=== PATIENT | female | born 1955 | race Caucasian/White ===

== ENCOUNTER 2016-12-30 07:16 | Outpatient (CLI) | payer BC ==
[~2016-12-30] VITALS: Ht 167.6 cm; Wt 110.0 kg
[2016-12-30] VITALS (7 sets, daily range): BP systolic 108–122; BP diastolic 57–66; PULSE 68–82; TEMP 98.1
[~2016-12-30 07:16] MED LIST: ADVAIR 250/28 DISKUS IH; ALBUTEROL0.09 MG/A1 IH; ALLEGRA180 MG PO; ALLEGRA60 MG PO; AMOXICILLIN 8751 TAB PO; ASPIRIN 32325 MG/TAB PO; ASPIRIN E.C.325 MG PO; CARAFATE 1GM1 G PO; CHANTIX1 MG PO; CLOPIDOGREL; CLOPIDOGREL PO; COENZYME Q-1010 MG PO; COENZYME Q-1050 MG PO; COLACE 100100 MG/CAP PO; CRESTOR; CRESTOR10 MG PO; DEXILANT60 MG PO; FISH OIL1 IU PO; FLONASE NASAL S16 GM NS; FLUNISOLIDE NS; GLUCOPHAGE500 MG/TAB PO; IMDUR 30MG30 MG/TAB PO; IMDUR 60MG60 MG/TAB PO; ISOCHRON40 MG PO; ISOSORBIDE DINI40 M1 PO; KAPIDEX PO; KAPIDEX60 MG PO; LISINOPRIL; LISINOPRIL2.5 MG PO; LISINOPRIL5 MG PO; LOPRESSOR 225 MG/TAB PO; METOPROLOL; MUCUS RELIEF400 M1 PO; MUCUSRELF400T PO; MULTIPLE VITAMI1 TAB PO; MVI PO; MYCOSTATIN100000 U/G TP; NASONEX SPRAY NAS; NATURE'S BLEND1 SG3 PO; NIACIN; NIASPAN 500MG500 MG; NIASPAN 500MG500 MG PO; NITROQUICK0.4 MG SL; NITROSTAT0.4 MG SL; NITROSTAT0.4 MG/TAB SL; NORVASC 5MG5 MG/TAB PO; ONE DAILY1 TA2 PO; OS-CAL 500 + D1 TAB; OSCAL W/VIT D250 MG PO; PHENERGAN 25 TA25 MG PO; PLAVIX 75MG TAB75 MG PO; PRAVACHOL 40MG40 MG PO; PRAVASTATIN; PREVACID 15MG15 MG PO; PREVACID30 MG PO; PRIMROSE OIL1 SGL PO; PRINIVIL5 MG PO; RANEXA; RANEXA 500MG T500 MG PO; RANEXA PO; RANEXA500 MG PO; RT ADVAIR 228 DISKUS IH; SINGULAIR10 MG PO; TOPROL XL100 MG PO; TRILIPIX 135MG PO; VITAMIN B COMPL1 TA1 PO; VITAMIN C500 MG PO; ZETIA10 MG PO; ZETONNA NS
[2016-12-30 08:09] LABS: HEMOGLOBIN 12.4 g/dl (12.5-16.0); MEAN CELL VOLUME 89 fl (80.0-100.0); MEAN CORPUSCULAR HEMOGLOBIN 29 pg (27.0-31.0); MEAN CORPUSCULAR HGB CONC 33 g/dl (33.0-37.0); MEAN PLATELET VOLUME 10.5 fl (7.4-10.4); PLATELET COUNT 258 K/mm3 (130-400); RED BLOOD COUNT 4.29 M/mm3 (4.10-5.30); REDCELL DISTRIBUTION WIDTH-CV 13.5 % (11.5-14.5); WHITE BLOOD COUNT 9.3 K/mm3 (4.8-10.8)
[2016-12-30 08:16] LABS: INR 0.9 (0.8-3.0); PROTHROMBIN TIME 10.4 SECONDS (9.7-12.8)
[2016-12-30] MEDS ORDERED: IMDUR 60MG60 MG/TAB PO (08:16)
[2016-12-30] MEDS ORDERED: NORVASC 10MG10 MG PO (08:18)
[2016-12-30 08:20] LABS: CALCIUM 9.9 mg/dL (8.4-10.2); CREATININE, serum 0.77 mg/dL (0.52-1.25); POTASSIUM 4.1 mmol/L (3.4-5.0)
[2016-12-30] MEDS ORDERED: PROAIR HFA0.09 MG/AC IH (08:33)
[2016-12-30] MEDS ORDERED: NASONEX SPRAY17 GM NS (08:34)
[2016-12-30] MEDS ORDERED: VITAMINC1000TA PO (08:36)
[2016-12-30] MEDS ORDERED: VITAMIN D 1001000 IU PO (08:39)
[2016-12-30] MEDS ORDERED: VITAMIN B-1000 MCG/T PO (08:41)
== END 2016-12-30 12:10 | disposition home or self-care (01) ==
LOC: COL.RAD 07:16
PROVIDERS: Internal Medicine Interventional Cardiology
DX: Z45.2 Encounter for adjustment and management of vascular access device (principal); E78.5 Hyperlipidemia, unspecified; I25.10 Atherosclerotic heart disease of native coronary artery without angina pectoris; Z79.84 Long term (current) use of oral hypoglycemic drugs; Z79.82 Long term (current) use of aspirin; Z79.899 Other long term (current) drug therapy; Z79.02 Long term (current) use of antithrombotics/antiplatelets
CPT/HCPCS: J2250; J3010

== ENCOUNTER 2017-02-17 13:08 | Emergency (ER) | payer BC ==
[~2017-02-17] VITALS: Ht 167.6 cm; Wt 109.1 kg
[~2017-02-17 13:08] MED LIST changes: +NASONEX SPRAY17 GM NS; +NORVASC 10MG10 MG PO; +PROAIR HFA0.09 MG/AC IH; +VITAMIN B-1000 MCG/T PO; +VITAMIN D 1001000 IU PO; +VITAMINC1000TA PO
[2017-02-17 13:12] VITALS: TEMP 98.4
[2017-02-17 13:38] LABS: BASO # 0.1 (0.0-0.2); BASO % 0.5 % (0.0-2.0); EOS # 0.1 (0.0-0.7); EOS % 0.9 % (0-4.0); GRAN # 6.6 (1.4-6.5); GRAN % 62.9 % (42.2-75.2); HEMATOCRIT 38.4 % (37.0-47.0); HEMOGLOBIN 12.5 g/dl (12.5-16.0); LYMPH # 3.3 (1.2-3.4); LYMPH % 31.6 % (20.0-51.0); MEAN CELL VOLUME 88 fl (80.0-100.0); MEAN CORPUSCULAR HEMOGLOBIN 29 pg (27.0-31.0); MEAN CORPUSCULAR HGB CONC 33 g/dl (33.0-37.0); MEAN PLATELET VOLUME 10.1 fl (7.4-10.4); MONO # 0.4 (0.1-0.6); MONO % 3.6 % (1.7-9.3); PLATELET COUNT 273 K/mm3 (130-400); RED BLOOD COUNT 4.37 M/mm3 (4.10-5.30); REDCELL DISTRIBUTION WIDTH-CV 13.6 % (11.5-14.5); WHITE BLOOD COUNT 10.5 K/mm3 (4.8-10.8)
[2017-02-17 13:39] LABS: PROTHROMBIN TIME 11.4 SECONDS (9.7-12.8)
[2017-02-17 14:01] LABS: ADJUSTED CALCIUM 9.1 mg/dL (8.4-10.2); ALANINE AMINOTRANSFERASE 47 U/L (9-52); ALBUMIN 4.4 gm/dL (3.5-5.0); ALKALINE PHOSPHATASE 67 U/L (50-136); ANION GAP 12 mmol/L (7-16); BILIRUBIN,TOTAL 0.7 mg/dL (0.0-1.0); BLOOD UREA NITROGEN 14 mg/dL (7-17); CALCIUM 9.4 mg/dL (8.4-10.2); CARBON DIOXIDE 26 mmol/L (22-30); CHLORIDE 97 mmol/L (98-107); CREATINE KINASE 107 U/L (30-135); CREATININE, serum 0.69 mg/dL (0.52-1.25); GLUCOSE 136 mg/dL (74-106); SODIUM 135 mmol/L (137-145); TOTAL PROTEIN 7.6 gm/dL (6.4-8.2)
[2017-02-17 14:12] LABS: B-TYPE NATRIURETIC PEPTIDE 75 pg/mL (0-125)
[2017-02-17] MEDS ORDERED: IRON325 M2 PO (14:13)
[2017-02-17 14:21] LABS: TROPONIN-I < 0.012 ng/mL (0.000-0.034)
[2017-02-17 16:53] VITALS: BP 118/63; PULSE 96
== END 2017-02-17 17:02 | disposition home or self-care (01) ==
LOC: COL.ER 13:08
PROVIDERS: Emergency Medicine
DX: R07.9 Chest pain, unspecified (principal); I10 Essential (primary) hypertension; E11.9 Type 2 diabetes mellitus without complications; E78.5 Hyperlipidemia, unspecified; I25.2 Old myocardial infarction; J44.9 Chronic obstructive pulmonary disease, unspecified; Z95.5 Presence of coronary angioplasty implant and graft; Z87.891 Personal history of nicotine dependence

== ENCOUNTER → 2017-08-23 | Outpatient (CLI) | payer BC ==
[~2017-08-23] MED LIST changes: +IRON325 M2 PO
== END ==
LOC: MC.RAD 07:01
DX: Z12.31 Encounter for screening mammogram for malignant neoplasm of breast (principal)

== ENCOUNTER 2017-11-17 06:03 | Day surgery (SDC) | payer BC ==
[2017-11-17] VITALS (13 sets, daily range): BP systolic 101–123; BP diastolic 46–79; PULSE 60–75; TEMP 98.3
[~2017-11-17] VITALS: Ht 170.2 cm; Wt 103.3 kg
[2017-11-17 06:41] LABS: HEMATOCRIT 38.5 % (37.0-47.0); HEMOGLOBIN 12.7 g/dl (12.5-16.0); MEAN CELL VOLUME 88 fl (80.0-100.0); MEAN CORPUSCULAR HEMOGLOBIN 29 pg (27.0-31.0); MEAN CORPUSCULAR HGB CONC 33 g/dl (33.0-37.0); MEAN PLATELET VOLUME 9.8 fl (7.4-10.4); PLATELET COUNT 284 K/mm3 (130-400); RED BLOOD COUNT 4.37 M/mm3 (4.10-5.30); REDCELL DISTRIBUTION WIDTH-CV 13.1 % (11.5-14.5)
[2017-11-17 06:45] LABS: PROTHROMBIN TIME 11.5 SECONDS (9.7-12.8)
[2017-11-17 06:51] LABS: CALCIUM 9.8 mg/dL (8.4-10.2); CREATININE, serum 0.68 mg/dL (0.52-1.25); POTASSIUM 4.4 mmol/L (3.4-5.0)
[2017-11-17] MEDS ORDERED: PLAVIX 75MG TAB75 MG PO (07:47)
[2017-11-17] MEDS ORDERED: ASPIRIN 32325 MG/TAB PO (07:47)
[2017-11-17] MEDS ORDERED: NITROSTAT0.4 MG/TAB SL (07:47)
[2017-11-17] MEDS ORDERED: TOPROL XL100 MG PO (07:48)
[2017-11-17] MEDS ORDERED: RANEXA 500MG T500 MG PO (07:49)
[2017-11-17] MEDS ORDERED: IMDUR 60MG60 MG/TAB PO (07:49)
[2017-11-17] MEDS ORDERED: ZESTRIL 5MG5 MG PO (07:50)
[2017-11-17] MEDS ORDERED: ALLEGRA 180MG180 MG PO (07:51)
[2017-11-17] MEDS ORDERED: NORVASC 10MG10 MG PO (07:51)
[2017-11-17] MEDS ORDERED: ZETIA 10MG TAB10 MG PO (07:52)
[2017-11-17] MEDS ORDERED: SINGULAIR 110 MG/TAB PO (07:52)
[2017-11-17] MEDS ORDERED: PRAVACHOL80 MG PO (07:53)
[2017-11-17] MEDS ORDERED: DEXILANT60 MG PO (07:54)
[2017-11-17] MEDS ORDERED: GLUCOPHAGE1000 MG PO (07:55)
[2017-11-17] MEDS ORDERED: RT ADVAIR 228 DISKUS IH (07:56)
[2017-11-17] MEDS ORDERED: PROAIR HFA0.09 MG/AC IH (07:56)
[2017-11-17] MEDS ORDERED: TRILIPIX 135MG PO (07:56)
[2017-11-17] MEDS ORDERED: EPA FISH OIL1 SGL PO (07:57)
[2017-11-17] MEDS ORDERED: NASONEX SPRAY17 GM NS (07:57)
[2017-11-17] MEDS ORDERED: MULTI VITAMINS1 TAB PO (07:58)
[2017-11-17] MEDS ORDERED: VITAMINC1000TA PO (07:59)
[2017-11-17] MEDS ORDERED: OS-CAL 500 + D1 TAB PO (08:01)
[2017-11-17] MEDS ORDERED: THE MEDICINE S200 M2 PO (08:02)
[2017-11-17] MEDS ORDERED: VITAMIN D 1001000 IU PO (08:02)
[2017-11-17] MEDS ORDERED: COLACE 100100 MG/CAP PO (08:03)
[2017-11-17] MEDS ORDERED: NATURAL IRON65 MG PO (08:04)
[2017-11-17] MEDS ORDERED: EVENING PRIMRO500 MG PO (08:04)
[2017-11-17] MEDS ORDERED: B-121000 MCG PO (08:05)
== END 2017-11-17 12:14 | disposition home or self-care (01) ==
LOC: COL.CAR 06:03
PROVIDERS: Internal Medicine Interventional Cardiology
DX: I25.119 Atherosclerotic heart disease of native coronary artery with unspecified angina pectoris (principal); R07.89 Other chest pain; I10 Essential (primary) hypertension; Z95.5 Presence of coronary angioplasty implant and graft; E78.5 Hyperlipidemia, unspecified; Z79.01 Long term (current) use of anticoagulants; Z79.82 Long term (current) use of aspirin; Z68.37 Body mass index [BMI] 37.0-37.9, adult; J44.9 Chronic obstructive pulmonary disease, unspecified; E11.9 Type 2 diabetes mellitus without complications; Z79.84 Long term (current) use of oral hypoglycemic drugs
CPT/HCPCS: J2250; J3010; Q9967

== ENCOUNTER → 2018-10-08 | Outpatient (CLI) | payer BC ==
[~2018-10-08] MED LIST changes: +ALLEGRA 180MG180 MG PO; +B-121000 MCG PO; +EPA FISH OIL1 SGL PO; +EVENING PRIMRO500 MG PO; +GLUCOPHAGE1000 MG PO; +MULTI VITAMINS1 TAB PO; +NATURAL IRON65 MG PO; +OS-CAL 500 + D1 TAB PO; +PRAVACHOL80 MG PO; +SINGULAIR 110 MG/TAB PO; +THE MEDICINE S200 M2 PO; +ZESTRIL 5MG5 MG PO; +ZETIA 10MG TAB10 MG PO
== END ==
LOC: MC.RAD 10-01 08:00
DX: Z12.31 Encounter for screening mammogram for malignant neoplasm of breast (principal)

== ENCOUNTER → 2019-10-09 | Outpatient (CLI) | payer MEDICARE, BC | LOC: MC.RAD 13:45 | DX: Z12.31 Encounter for screening mammogram for malignant neoplasm of breast (principal) ==

== ENCOUNTER 2019-12-01 10:33 | Emergency (ER) | payer MEDICARE, BC ==
[~2019-12-01] VITALS: Ht 167.6 cm; Wt 107.3 kg
[2019-12-01 11:39] LABS: BASO % 0.5 % (0.0-2.0); EOS # 0.1 (0.0-0.7); EOS % 0.7 % (0-4.0); GRAN # 6.7 (1.4-6.5); GRAN % 77.5 % (42.2-75.2); HEMATOCRIT 37.6 % (37.0-47.0); HEMOGLOBIN 12.5 g/dl (12.5-16.0); LYMPH # 1.1 (1.2-3.4); LYMPH % 13.1 % (20.0-51.0); MEAN CELL VOLUME 88 fl (80.0-100.0); MEAN CORPUSCULAR HEMOGLOBIN 29 pg (27.0-31.0); MEAN CORPUSCULAR HGB CONC 33 g/dl (33.0-37.0); MONO # 0.7 (0.1-0.6); PLATELET COUNT 230 K/mm3 (130-400); RED BLOOD COUNT 4.26 M/mm3 (4.10-5.30); REDCELL DISTRIBUTION WIDTH-CV 13.6 % (11.5-14.5)
[2019-12-01 11:53] LABS: COLLECTION METHOD CLEAN CATCH
[2019-12-01 11:54] LABS: ALANINE AMINOTRANSFERASE 42 U/L (9-52); ALBUMIN 4.2 gm/dL (3.5-5.0); ALKALINE PHOSPHATASE 64 U/L (50-136); ANION GAP 10 mmol/L (7-16); AST,SGOT 51 U/L (15-37); BILIRUBIN,TOTAL 0.3 mg/dL (0.0-1.0); BLOOD UREA NITROGEN 18 mg/dL (7-17); CALCIUM 9.6 mg/dL (8.4-10.2); CARBON DIOXIDE 23 mmol/L (22-30); CHLORIDE 106 mmol/L (98-107); CREATININE, serum 0.54 (0.52-1.25); GLUCOSE 149 mg/dL (74-106); POTASSIUM 4.2 mmol/L (3.4-5.0); SODIUM 139 mmol/L (137-145); TOTAL PROTEIN 7.4 gm/dL (6.4-8.2)
[2019-12-01 12:08] LABS: TROPONIN-I < 0.012 ng/mL (0.000-0.035)
[2019-12-01 12:12] LABS: PH 8 (5-8); SQUAMOUS EPITHELIAL None Seen /hpf; URINE APPEARANCE Hazy; URINE BACTERIA None Seen /hpf; URINE BILIRUBIN Negative (NEGATIVE); URINE BLOOD Negative (NEGATIVE); URINE COLOR Yellow; URINE GLUCOSE Negative (NEGATIVE); URINE KETONE Negative (NEGATIVE); URINE LEUKOCYTE ESTERASE Negative (NEGATIVE); URINE NITRATE Negative (NEGATIVE); URINE PROTEIN(semi-quant) Negative (NEGATIVE); URINE RBC 0-2 /hpf; URINE UROBILINOGEN Negative (NEGATIVE)
[2019-12-01] MEDS ORDERED: TAMIFLU 75MG75 MG PO (13:22)
[2019-12-01] MEDS ORDERED: PREDNISONE20 MG PO (13:22)
[2019-12-01] MEDS ORDERED: DOXYCYCLINE 10100 MG PO (13:22)
[2019-12-01] MEDS ORDERED: TESSALON PERLE200 MG PO (13:22)
[2019-12-01 13:56] VITALS: BP 107/56; PULSE 85; TEMP 98.2
== END 2019-12-01 13:56 | disposition home or self-care (01) ==
LOC: COL.ER 10:33
PROVIDERS: Emergency Medicine; Nurse Practitioner
DX: J20.9 Acute bronchitis, unspecified (principal); J10.1 Influenza due to other identified influenza virus with other respiratory manifestations; E11.9 Type 2 diabetes mellitus without complications; J44.9 Chronic obstructive pulmonary disease, unspecified; I25.10 Atherosclerotic heart disease of native coronary artery without angina pectoris; E78.5 Hyperlipidemia, unspecified; Z95.9 Presence of cardiac and vascular implant and graft, unspecified; Z79.82 Long term (current) use of aspirin; Z79.02 Long term (current) use of antithrombotics/antiplatelets; Z79.51 Long term (current) use of inhaled steroids
CPT/HCPCS: J7512

== ENCOUNTER → 2020-10-12 | Outpatient (CLI) | payer MEDICARE, BC ==
[~2020-10-12] MED LIST changes: +DOXYCYCLINE 10100 MG PO; +PREDNISONE20 MG PO; +TAMIFLU 75MG75 MG PO; +TESSALON PERLE200 MG PO
== END ==
LOC: MC.RAD 08:45
DX: Z12.31 Encounter for screening mammogram for malignant neoplasm of breast (principal); Z78.0 Asymptomatic menopausal state

== ENCOUNTER → 2022-02-04 | Outpatient (CLI) | payer MEDICARE, BC | LOC: MC.RAD 09:27 | DX: Z12.31 Encounter for screening mammogram for malignant neoplasm of breast (principal) ==

== ENCOUNTER → 2022-05-19 | Outpatient (CLI) | payer MEDICARE, BC ==
[2022-05-19 14:23] LABS: HEMOGLOBIN 12.2 g/dl (12.5-16.0); MEAN CELL VOLUME 86 fl (80.0-100.0); MEAN CORPUSCULAR HEMOGLOBIN 29 pg (27-31); MEAN CORPUSCULAR HGB CONC 33 g/dl (33.0-37.0); MEAN PLATELET VOLUME 9.4 fl (7.4-10.4); PLATELET COUNT 325 K/mm3 (130-400); RED BLOOD COUNT 4.27 M/mm3 (4.10-5.30); REDCELL DISTRIBUTION WIDTH-CV 13.6 % (11.5-14.5)
[2022-05-19 14:25] LABS: HEMATOCRIT 36.8 % (37.0-47.0)
[2022-05-19 14:42] LABS: CALCIUM 9.7 mg/dL (8.4-10.2); CREATININE, serum 0.82 mg/dL (0.57-1.11); POTASSIUM 4.6 mmol/L (3.5-4.5)
== END ==
LOC: COL.LAB 14:02
PROVIDERS: Nurse Practitioner
DX: R07.89 Other chest pain (principal)

== ENCOUNTER → 2022-12-27 | Outpatient (CLI) | payer MEDICARE, BC ==
[2022-12-27 10:50] LABS: HEMATOCRIT 37.1 % (37.0-47.0); HEMOGLOBIN 12.5 g/dl (12.5-16.0); MEAN CELL VOLUME 89 fl (80.0-100.0); MEAN CORPUSCULAR HEMOGLOBIN 30 pg (27-31); MEAN CORPUSCULAR HGB CONC 34 g/dl (33.0-37.0); MEAN PLATELET VOLUME 9.5 fl (7.4-10.4); PLATELET COUNT 277 K/mm3 (130-400); RED BLOOD COUNT 4.17 M/mm3 (4.10-5.30); REDCELL DISTRIBUTION WIDTH-CV 13.1 % (11.5-14.5)
[2022-12-27 11:15] LABS: ANION GAP 10 mmol/L (7-16); BLOOD UREA NITROGEN 18 mg/dL (10-20); CALCIUM 9.8 mg/dL (8.4-10.2); CARBON DIOXIDE 26 mmol/L (23-31); CHLORIDE 100 mmol/L (98-107); CREATININE, serum 0.77 mg/dL (0.57-1.11); GLUCOSE 108 mg/dL (70-99); POTASSIUM 4.4 mmol/L (3.5-4.5); SODIUM 136 mmol/L (136-145)
[2022-12-27 11:33] LABS: TROPONIN-I < 0.010 ng/mL (0.00-0.033)
== END ==
LOC: COL.LAB 10:23
PROVIDERS: Nurse Practitioner
DX: I20.9 Angina pectoris, unspecified (principal); R06.02 Shortness of breath

== ENCOUNTER 2023-11-10 13:56 | Emergency (ER) | payer MEDICARE, BC ==
[~2023-11-10] VITALS: Ht 167.6 cm; Wt 101.8 kg
[2023-11-10 14:00] VITALS: TEMP 98.5
[2023-11-10] MEDS ORDERED: Acetaminophen 500 MG TAB PO ONE (14:30)
[2023-11-10 14:34] LABS: BASO # 0.1 K/mm3 (0.0-0.2); BASO % 0.5 % (0.0-2.0); EOS % 0.3 % (0.0-4.0); GRAN % 72.7 % (42.2-75.2); HEMATOCRIT 37.5 % (37.0-47.0); HEMOGLOBIN 12.7 g/dl (12.5-16.0); LYMPH % 21.8 % (20.0-51.0); MEAN CELL VOLUME 87 fl (80.0-100.0); MEAN CORPUSCULAR HEMOGLOBIN 29 pg (27-31); MEAN CORPUSCULAR HGB CONC 34 g/dl (33.0-37.0); MEAN PLATELET VOLUME 9.8 fl (7.4-10.4); MONO # 0.6 K/mm3 (0.1-0.6); MONO % 4.3 % (1.7-9.3); PLATELET COUNT 291 K/mm3 (130-400); RED BLOOD COUNT 4.32 M/mm3 (4.10-5.30)
[2023-11-10 14:55] LABS: ALANINE AMINOTRANSFERASE 22 U/L (0-55); ALBUMIN 3.7 gm/dL (3.4-4.8); ALKALINE PHOSPHATASE 45 U/L (40-150); ANION GAP 11 mmol/L (7-16); AST,SGOT 19 U/L (5-34); BILIRUBIN,TOTAL 0.3 mg/dL (0.2-1.2); BLOOD UREA NITROGEN 18 mg/dL (10-20); CALCIUM 9.5 mg/dL (8.4-10.2); CARBON DIOXIDE 23 mmol/L (23-31); CHLORIDE 99 mmol/L (98-107); CREATININE, serum 0.86 mg/dL (0.57-1.11); GLUCOSE 116 mg/dL (70-99); LIPASE 21 U/L (8-78); POTASSIUM 4.7 mmol/L (3.5-4.5); SODIUM 133 mmol/L (136-145); TOTAL PROTEIN 6.8 gm/dL (6.2-8.1)
[2023-11-10 15:01] LABS: TROPONIN-I < 0.010 ng/mL (0.00-0.033)
[2023-11-10 18:16] VITALS: PULSE 62
[2023-11-10 18:18] VITALS: BP 100/50; O2SAT 93
== END 2023-11-10 18:16 | disposition home or self-care (01) ==
LOC: COL.ER 13:56
PROVIDERS: Emergency Medicine
DX: R07.89 Other chest pain (principal); I25.2 Old myocardial infarction; G47.30 Sleep apnea, unspecified; Z95.5 Presence of coronary angioplasty implant and graft; Z87.891 Personal history of nicotine dependence

== ENCOUNTER → 2024-04-15 | Outpatient (CLI) | payer MEDICARE, BC | LOC: MC.RAD 07:49 | DX: Z12.31 Encounter for screening mammogram for malignant neoplasm of breast (principal) ==

== ENCOUNTER → 2024-06-26 | Outpatient (CLI) | payer MEDICARE, BC ==
[~2024-06-26] MED LIST changes: +Iohexol 300 - 100 ML VIAL IV ONE; +NS 100 ML IV SCH
[2024-06-26 09:57] LABS: BASO # 0.1 K/mm3 (0.0-0.2); BASO % 0.3 % (0.0-2.0); EOS # 0.1 K/mm3 (0.0-0.7); EOS % 0.4 % (0.0-4.0); GRAN # 16.5 K/mm3 (1.4-6.5); GRAN % 72.2 % (42.2-75.2); HEMATOCRIT 40.9 % (37.0-47.0); HEMOGLOBIN 13.5 g/dl (12.5-16.0); LYMPH # 4.8 K/mm3 (1.2-3.4); LYMPH % 20.8 % (20.0-51.0); MEAN CELL VOLUME 88 fl (80.0-100.0); MEAN CORPUSCULAR HEMOGLOBIN 29 pg (27-31); MEAN CORPUSCULAR HGB CONC 33 g/dl (33.0-37.0); MEAN PLATELET VOLUME 9.5 fl (7.4-10.4); MONO # 1.2 K/mm3 (0.1-0.6); MONO % 5.3 % (1.7-9.3); PLATELET COUNT 329 K/mm3 (130-400); RED BLOOD COUNT 4.63 M/mm3 (4.10-5.30); REDCELL DISTRIBUTION WIDTH-CV 14.1 % (11.5-14.5)
[2024-06-26 10:18] LABS: ALBUMIN 4.1 g/dL (3.4-4.8); BILIRUBIN,TOTAL 0.4 mg/dL (0.2-1.2); CALCIUM 9.9 mg/dL (8.4-10.2); CREATININE, serum 0.81 mg/dL (0.57-1.11); POTASSIUM 4.5 mEq/L (3.5-4.5)
== END ==
LOC: COL.RAD 08:55 → COL.LAB 08:55 → COL.RAD 09:30
PROVIDERS: Student in an Organized Health Care Education/Training Program
DX: J20.9 Acute bronchitis, unspecified (principal)
CPT/HCPCS: Q9967